=== PATIENT | male | born 1945 | race Caucasian/White ===

== ENCOUNTER 2020-01-10 14:39 | Emergency (ER) | payer OTHER, MEDICARE ==
[~2020-01-10] VITALS: Ht 167.6 cm; Wt 63.5 kg
[2020-01-10] MEDS ORDERED: Prednisone20 MG PO (16:10)
== END 2020-01-10 16:33 | disposition home or self-care (01) ==
LOC: ER 14:39
DX: H69.81 Other specified disorders of Eustachian tube, right ear (principal); I10 Essential (primary) hypertension; F17.210 Nicotine dependence, cigarettes, uncomplicated
CPT/HCPCS: 99282

== ENCOUNTER 2020-01-15 10:34 | Emergency (ER) | payer OTHER, MEDICARE ==
[~2020-01-15] VITALS: Ht 167.6 cm; Wt 63.5 kg
[~2020-01-15 10:34] MED LIST: Prednisone20 MG PO
[2020-01-15] MEDS ORDERED: Sudogest60 MG PO (11:29)
== END 2020-01-15 11:32 | disposition home or self-care (01) ==
LOC: ER 10:34
DX: H83.8X3 Other specified diseases of inner ear, bilateral (principal); I10 Essential (primary) hypertension; Z79.52 Long term (current) use of systemic steroids; F17.210 Nicotine dependence, cigarettes, uncomplicated
CPT/HCPCS: 99282

== ENCOUNTER 2022-04-30 15:47 | Inpatient (IN) | payer OTHER ==
[~2022-04-30] VITALS: Ht 167.6 cm; Wt 64.9 kg
[~2022-04-30 15:47] MED LIST changes: +Sudogest60 MG PO
[2022-04-30 17:09] LABS: BASOPHILS ABSOLUTE AUTO 0.04 K/mm3 (0.00-0.23); BASOPHILS PERCENT AUTO 1 % (0-2); EOSINOPHILS ABSOLUTE AUTO 0.11 K/mm3 (0.00-0.68); EOSINOPHILS PERCENT AUTO 1 % (0-6); Hematocrit 49.5 % (37.0-53.0); Hemoglobin 15.4 g/dL (13.5-17.5); IMMATURE GRAN ABSOLUTE AUTO 0.02 K/mm3 (0.00-0.10); IMMATURE GRAN PERCENT AUTO 0 % (0-1); LYMPHOCYTES ABSOLUTE AUTO 0.65 K/mm3 (0.84-5.20); LYMPHOCYTES PERCENT AUTO 8 % (21-46); MONOCYTES ABSOLUTE AUTO 1.07 K/mm3 (0.16-1.47); MONOCYTES PERCENT AUTO 14 % (4-13); Mean Corpuscular HGB 27.4 pg (26.0-34.0); Mean Corpuscular HGB Conc 31.1 g/dL (31.5-36.5); Mean Corpuscular Volume 88 fL (80-100); Mean Platelet Volume 10.5 fL (9.1-12.4); NEUTROPHILS ABSOLUTE AUTO 5.88 K/mm3 (1.96-9.15); NEUTROPHILS PERCENT AUTO 76 % (41-73); Platelet Count 144 K/mm3 (150-400); RDW Coefficient Variation 14.1 % (11.7-14.2); RDW Standard Deviation 45.7 fL (35.1-46.3); Red Blood Cell Count 5.62 M/mm3 (4.30-5.90); White Blood Cell Count 7.77 K/mm3 (4.00-11.30)
[2022-04-30 17:32] LABS: Albumin/Globulin Ratio 0.9 (0.8-1.8); Bilirubin, Total 0.5 mg/dL (0.1-1.0); Bun/Creatinine Ratio 35.1 (12.0-20.0); Calcium, Blood 8.5 mg/dL (8.5-10.1); Creatinine, Blood 0.74 mg/dL (0.60-1.20); Globulin, Blood 3.4 g/dL (2.2-4.0); Magnesium, Blood 1.8 mg/dL (1.6-2.4); Potassium, Blood 4.7 mmol/L (3.5-5.5); Total Protein, Blood 6.4 g/dL (6.4-8.2)
[2022-04-30] MEDS ORDERED: Flonase 0.05% N16 GM (19:26)
[2022-04-30] MEDS ORDERED: Aspir 8181 MG PO (19:26)
[2022-04-30] MEDS ORDERED: METO25 PO (19:26)
[2022-04-30 20:16] LABS: Influenza A, PCR NEGATIVE (NEGATIVE); Influenza B, PCR NEGATIVE (NEGATIVE); Resp Syncytial Virus, PCR NEGATIVE (NEGATIVE); SARS-Cov-2 (COVID-19) PCR, MMC NEGATIVE (NEGATIVE)
--- NOTE | 2022-04-30 21:58 | NUR ---
ADMISSION: PATIENT WAS RECIEVED FROM ER. VSS NO REPORTS OF PAIN OR SOB. 1L NC IS ON, RA AT HOME. PATIENT IS ORIENTED TO ROOM AND CALL SAMS. DR TRAVIS IS IN ROOM TO EVAL PATIENT.
[2022-04-30 22:52] LABS: CPK Creatine Kinase 52 U/L (39-308)
[2022-05-01 06:32] LABS: BASOPHILS ABSOLUTE AUTO 0.01 K/mm3 (0.00-0.23); BASOPHILS PERCENT AUTO 0 % (0-2); EOSINOPHILS PERCENT AUTO 0 % (0-6); Hematocrit 51.3 % (37.0-53.0); Hemoglobin 15.8 g/dL (13.5-17.5); IMMATURE GRAN ABSOLUTE AUTO 0.02 K/mm3 (0.00-0.10); IMMATURE GRAN PERCENT AUTO 0 % (0-1); LYMPHOCYTES ABSOLUTE AUTO 0.33 K/mm3 (0.84-5.20); LYMPHOCYTES PERCENT AUTO 6 % (21-46); MONOCYTES ABSOLUTE AUTO 0.42 K/mm3 (0.16-1.47); MONOCYTES PERCENT AUTO 7 % (4-13); Mean Corpuscular HGB 27.4 pg (26.0-34.0); Mean Corpuscular HGB Conc 30.8 g/dL (31.5-36.5); Mean Corpuscular Volume 89 fL (80-100); Mean Platelet Volume 10.2 fL (9.1-12.4); NEUTROPHILS ABSOLUTE AUTO 5.19 K/mm3 (1.96-9.15); NEUTROPHILS PERCENT AUTO 87 % (41-73); Platelet Count 134 K/mm3 (150-400); RDW Coefficient Variation 14.3 % (11.7-14.2); Red Blood Cell Count 5.76 M/mm3 (4.30-5.90); White Blood Cell Count 5.97 K/mm3 (4.00-11.30)
[2022-05-01 06:56] LABS: Albumin, Blood 3.2 g/dL (3.4-5.0); Albumin/Globulin Ratio 0.8 (0.8-1.8); Bilirubin, Total 0.5 mg/dL (0.1-1.0); Bun/Creatinine Ratio 27.9 (12.0-20.0); Calcium, Blood 8.4 mg/dL (8.5-10.1); Creatinine, Blood 0.75 mg/dL (0.60-1.20); Globulin, Blood 3.8 g/dL (2.2-4.0); Potassium, Blood 4.2 mmol/L (3.5-5.5)
--- NOTE | 2022-05-01 07:16 | NUR ---
SHIFT SUMMARY: PATIENT CONTINUES TO BE SOB WITH ACTIVITY. 2L NC KEEPS STATS 90-94%. PATIENT REPORTS PRODUCTIVE COUGH, BUT NONE OBSERVED BY PROPERTY MANAGEMENT COORDINATOR. IV LASIX WAS GIVEN. TELI IS IN PLACE SR WITH OCCASIONAL PVC'S. NO REPORTS OF CHEST PAIN.
--- NOTE | 2022-05-01 17:58 | NUR ---
DAYSHIFT SUMMARY Patient on tele, vitals stable, saturations stable on 1L oxygen, MD ordered home O2 evaluation on discharge. Patient alert and oriented, independent in room, steady gait when ambulating. SOB noted with excertion. IV ABX therapy administred. No other concerns at this time.
--- NOTE | 2022-05-02 06:40 | NUR ---
SHIFT SUMMARY: PATIENT REPORTS SOB HAS RESOLVED. 02 @ 2 L MAINTAINING SATS 91-93%. UP TO THE BATHROOM WITH STEADY GAIT INDEPENDANTLY. VSS.
[2022-05-02 08:07] LABS: Bun/Creatinine Ratio 29.7 (12.0-20.0); Calcium, Blood 8.7 mg/dL (8.5-10.1); Creatinine, Blood 0.67 mg/dL (0.60-1.20); Potassium, Blood 4.8 mmol/L (3.5-5.5)
--- NOTE | 2022-05-02 18:02 | NUR ---
SHIFT SUMMARY NO ACUTE CHANGES THIS SHIFT. PATIENT IS ALERT, ORIENTED AND ABLE TO MAKE HIS NEEDS KNOWN. PATIENT IS PLEASANT AND COOPERATIVE WITH CARE. ANTICIPATE PATIENT TO DC HOME TOMORROW, WILL NEED HOME O2 EVAL PRIOR TO DC HE IS ON 2L AT PRESENT. BED LOW AND LOCKED, CALL LIGHT WITHIN REACH. HE IS INDEPENDENT IN HIS ROOM. WILL CONT TO MONITOR UNTIL REPORT GIVEN TO QUARTER TRIMMER RN.
--- NOTE | 2022-05-03 05:46 | NUR ---
SHIFT SUMMARY: PATIENT SHOWERED THIS SHIFT, VSS, NO SOB OBSERVED. INDEPENDANT TO THE BATHROOM. PATIENT DOES NOT DRINK WATER ONLY COFFEE. WATER IS ENCOURAGED.
--- NOTE | 2022-05-03 17:10 | NUR ---
DAYSHIFT SUMMARY MD assessed patient at bedside this morning, plan is to have ECHO and Home O2 evaluation. ECHO completed & resulted in chart. Saturations stable on 2L oxygen, afebrile, vitals stable. Frequent nonproductive cough, SOB with activity, accessory muscle use observed. No other concerns at this time.
--- NOTE | 2022-05-04 05:07 | NUR ---
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 PT IS A FULL CODE. HE IS ALERT AND ORIENTED X4. CURRENTLY RESTING WELL ON 2L BY NC. LUNGS ARE WHEEZY IN ALL SCOTT, MOSTLY EXPIRATORY. PT DENIES SOB. PLAN FOR DISCHARGE HOME TODAY BASED ON RESULTS OF ECHO AND AFTER A HOME O2 EVAL. NO OTHER COMPLAINTS THIS SHIFT.
--- NOTE | 2022-05-04 15:49 | NUR ---
SHIFT SUMMARY PATIENT IS ALERT AND ORIENTED. PATIENT HAS BEEN ON 2L NC ALL SHIFT. PATIENT HAS BEEN IND IN ROOM. PATIENT HAS HAD NO COMPLAINTS OF NAUSEA, PAIN, SOB, OR VOMITTING THIS SHIFT. PATIENT TAKES MEDICATIONS PO WITH WATER. LUNGS ARE WHEEZY BUT DENIES SOB. PATIENT HAS HAD NO ACUTE EVENTS THIS SHIFT. VITAL SIGNS REVIEWED. BED IN LOCKED AND LOWEST POSITION. CALL LIGHT IN PLACE. WILL MONITOR UNTIL SHIFT CHANGE.
--- NOTE | 2022-05-05 00:52 | NUR ---
05/04/22 2201 PT LYING IN BED, DENIES ANY DISCOMFORT AT THIS TIME. DENIES SOB. ON 2L NC AT 96%. NO OTHER APPARENT SIGNS OF DISTRESS. CALL LIGHT IS IN REACH.
--- NOTE | 2022-05-05 01:27 | NUR ---
0000 PT LYING IN BED, EYES CLOSED, APPEARS TO BE RESTING. BREATHING IS EVEN, UNLABORED. NO APPARENT SIGNS OF DISTRESS. CALL LIGHT IS IN REACH.
--- NOTE | 2022-05-05 01:28 | NUR ---
PT LYING IN BED, EYES CLOSED, APPEARS TO BE RESTING. BREATHING IS EVEN, UNLABORED. NO APPARENT SIGNS OF DISTRESS. CALL LIGHT IS IN REACH.
--- NOTE | 2022-05-05 06:47 | NUR ---
0400 PT LYING IN BED, EYES CLOSED, APPEARS TO BE RESTING. WAKES EASILY TO VERBAL STIMULI. NO APPARENT SIGNS OF DISTRESS. CALL LIGHT IS IN REACH.
--- NOTE | 2022-05-05 06:48 | NUR ---
PT IS AAO X 4, ON 2L NC AT 96%. PT DENIES SOB OR ANY DISCOMFORT FOR THIS SHIFT.
--- NOTE | 2022-05-05 07:31 | NUR ---
PT LYING IN BED, AWAKE, NO APPARENT SIGNS OF DISTRESS. DENIES NEED FOR ANYTHING AT THIS TIME. CALLLIGHT IS IN REACH. NO OTHER CHANGES THIS SHIFT.
[2022-05-05] MEDS ORDERED: FLUTICASONE-SA1 EAC2 INH (13:22)
[2022-05-05] MEDS ORDERED: LEVO750 PO (13:23)
[2022-05-05] MEDS ORDERED: VISBIOME 112.51 EACH PO (13:24)
[2022-05-05] MEDS ORDERED: PRED10 PO (13:24)
[2022-05-05] MEDS ORDERED: ALBU2.5V5 INH (13:25)
--- NOTE | 2022-05-05 15:38 | NUR ---
DISCHARGE SUMMARY PATIENT IS ALERT AND ORIENTED. PATIENT HAS BEEN IND IN ROOM THIS SHIFT. PATIENT HAS HAD NO ACUTE EVENTS THIS SHIFT. VITAL SIGNS REVIEWED. PATIENT HAS BEEN ON 2L NC THIS SHIFT. PATIENT HAS NO COMPLAINTS OF PAIN, NAUSEA, SOB OR VOMITTING THIS SHIFT. [facility] W[facility] WITH PATIENT AND [facility] TO [facility]IENTS [facility] AT [facility] [place].
== END 2022-05-05 15:40 | disposition home or self-care (01) | DRG 189 ==
LOC: ER 15:47 → MEDS 15:48 → ER 15:48 → MEDS 21:34
PROVIDERS: Internal Medicine; Physician Assistant; ADMIT Internal Medicine
DX: J96.01 Acute respiratory failure with hypoxia (principal); I21.A1 Myocardial infarction type 2; J44.1 Chronic obstructive pulmonary disease with (acute) exacerbation; E87.1 Hypo-osmolality and hyponatremia; J44.0 Chronic obstructive pulmonary disease with (acute) lower respiratory infection; E44.0 Moderate protein-calorie malnutrition; R64 Cachexia; Z20.822 Contact with and (suspected) exposure to COVID-19; B96.89 Other specified bacterial agents as the cause of diseases classified elsewhere; J20.9 Acute bronchitis, unspecified; T38.0X5A Adverse effect of glucocorticoids and synthetic analogues, initial encounter; Z68.23 Body mass index [BMI] 23.0-23.9, adult; I27.20 Pulmonary hypertension, unspecified; D69.6 Thrombocytopenia, unspecified; R91.8 Other nonspecific abnormal finding of lung field; I35.0 Nonrheumatic aortic (valve) stenosis; L40.9 Psoriasis, unspecified; R73.9 Hyperglycemia, unspecified; F17.210 Nicotine dependence, cigarettes, uncomplicated; Z79.82 Long term (current) use of aspirin; Z79.52 Long term (current) use of systemic steroids; Z79.899 Other long term (current) drug therapy
CPT/HCPCS: 0241U; 36415; 71046; 71260; 80048; 80053; 82550; 83605; 83735; 83880; 84484; 85025; 85379; 87040; 87070; 87077; 87186; 87205; 93005; 93010; 93306; 94640; 94664; 94760; 94761; 96365; 96366; 96372; 96375; 96376; 99285-25; A9270; G0378; J0456; J0696; J1650; J1940; J2930; J7030; J7050; J7512; Q9967

== ENCOUNTER 2025-03-12 23:16 | Emergency (ER) | payer OTHER ==
[~2025-03-12] VITALS: Ht 167.6 cm; Wt 66.7 kg
[~2025-03-12 23:16] MED LIST changes: +ALBU2.5V5 INH; +Aspir 8181 MG PO; +FLUTICASONE-SA1 EAC2 INH; +Flonase 0.05% N16 GM; +LEVO750 PO; +METO25 PO; +PRED10 PO; +VISBIOME 112.51 EACH PO
[2025-03-12 23:42] LABS: BASOPHILS ABSOLUTE AUTO 0.05 K/mm3 (0.00-0.23); BASOPHILS PERCENT AUTO 0 % (0-2); EOSINOPHILS ABSOLUTE AUTO 0.26 K/mm3 (0.00-0.68); EOSINOPHILS PERCENT AUTO 2 % (0-6); Hematocrit 46.4 % (37.0-53.0); IMMATURE GRAN ABSOLUTE AUTO 0.07 K/mm3 (0.00-0.10); IMMATURE GRAN PERCENT AUTO 1 % (0-1); LYMPHOCYTES ABSOLUTE AUTO 1.34 K/mm3 (0.84-5.20); LYMPHOCYTES PERCENT AUTO 11 % (21-46); MONOCYTES ABSOLUTE AUTO 1.12 K/mm3 (0.16-1.47); MONOCYTES PERCENT AUTO 9 % (4-13); Mean Corpuscular HGB 29.4 pg (26.0-34.0); Mean Corpuscular HGB Conc 32.3 g/dL (31.5-36.5); Mean Corpuscular Volume 91 fL (80-100); NEUTROPHILS PERCENT AUTO 77 % (41-73); Platelet Count 143 K/mm3 (150-400); RDW Coefficient Variation 13.4 % (11.7-14.2); RDW Standard Deviation 45.4 fL (35.1-46.3); Red Blood Cell Count 5.11 M/mm3 (4.30-5.90); White Blood Cell Count 12.14 K/mm3 (4.00-11.30)
[2025-03-13 00:02] LABS: Albumin, Blood 3.5 g/dL (3.4-5.0); Bilirubin, Total 0.6 mg/dL (0.1-1.0); Bun/Creatinine Ratio 29.4 (12.0-20.0); Calcium, Blood 8.7 mg/dL (8.5-10.1); Creatinine, Blood 0.72 mg/dL (0.60-1.20); Globulin, Blood 3.5 g/dL (2.2-4.0); Potassium, Blood 4.1 mmol/L (3.5-5.5)
[2025-03-13 01:15] VITALS: BP 122/64
== END 2025-03-13 02:55 | disposition home or self-care (01) ==
LOC: ER 23:16
PROVIDERS: Emergency Medicine
DX: R00.0 Tachycardia, unspecified (principal); R73.9 Hyperglycemia, unspecified; R79.89 Other specified abnormal findings of blood chemistry; E86.0 Dehydration; D72.829 Elevated white blood cell count, unspecified; J44.9 Chronic obstructive pulmonary disease, unspecified; I10 Essential (primary) hypertension; Z79.82 Long term (current) use of aspirin; Z79.52 Long term (current) use of systemic steroids; Z79.899 Other long term (current) drug therapy
CPT/HCPCS: 71046; 80053; 83690; 84484; 85025; 93005; 93010; 99284-25

== ENCOUNTER 2025-05-20 08:18 | Day surgery (SDC) | payer OTHER ==
[2025-05-20] VITALS (8 sets, daily range): BP systolic 103–175; BP diastolic 51–137
[~2025-05-20] VITALS: Ht 167.6 cm; Wt 63.9 kg
[~2025-05-20 08:18] MED LIST changes: +ATOR20 PO; +Betamethasone V15 GM TOP; +EZET10 PO; +FLUT.05NI; +FURO40 PO; +HYDHCL25 PO; +JARDIANCE10 MG PO; +LUTEIN-ZEAXANT1 EAC3 PO; +SPIRIVA RESPIMAT4 G3 INH; +THERA-D2000 UNIT PO; +XARELTO20 MG PO
[2025-05-20] MEDS ORDERED: Heparin Sodium 1000 Units/ML 10ML MDV ONE (08:29)
[2025-05-20] MEDS ORDERED: NS 1,000 ML IV ONE ×2 (08:29→08:45)
[2025-05-20] MEDS ORDERED: NS 250 ML IV ONE (08:29)
[2025-05-20] MEDS ORDERED: Verapamil HCL 2.5 MG/ML 2ML Injection ONE (08:29)
[2025-05-20] MEDS ORDERED: Nitroglycerin 2 MG/20 ML BTL ONE (08:30)
[2025-05-20] MEDS ORDERED: Vitamin D1000 UNI1 PO (08:38)
[2025-05-20] MEDS ORDERED: ALBU90OI INH (08:45)
[2025-05-20] MEDS ORDERED: Midazolam HCl 1MG / ML 2ML Vial ONE (08:45)
[2025-05-20] MEDS ORDERED: FentaNYL Citrate 50 MCG/ML 2 ML Injection ONE (08:45)
[2025-05-20] MEDS ORDERED: PRESERVISION A1 EAC1 PO (08:47)
--- NOTE | 2025-05-20 12:08 | NUR ---
RETURNED EARLIER FROM [facility], PLACED TO 4L NC, TITRATED DOWN 02 TO ROOM AIR DURING RECOVERY; TR BAND ALSO DEFLATED AND REMOVED, DISCUSSED D/C INSTRUCTIONS, FOLLOW UP APPOINTMENT, RESUMING XARELTO, CALLING OR RETURNING IF BLEEDING FROM SITE AND CALLING IF UNABLE TO GET BLEEDING CONTROLLED, PATIENT VERBALIZE UNDERSTANDING, BELONGINGS GATHERED, PATIENT DRESSED, IV'S REMOVED X 2, TAKEN BY WHEELCHAIR TO LOBBY PENDING TRANSPORTATION AT 1200.
== END 2025-05-20 12:00 | disposition home or self-care (01) ==
LOC: MHTC 08:18
DX: I35.0 Nonrheumatic aortic (valve) stenosis (principal); I10 Essential (primary) hypertension; E78.5 Hyperlipidemia, unspecified; J44.9 Chronic obstructive pulmonary disease, unspecified; F17.200 Nicotine dependence, unspecified, uncomplicated; I65.22 Occlusion and stenosis of left carotid artery; I65.03 Occlusion and stenosis of bilateral vertebral arteries; R91.8 Other nonspecific abnormal finding of lung field; Z79.82 Long term (current) use of aspirin; Z79.899 Other long term (current) drug therapy
CPT/HCPCS: 76937; 93005; 93010; 93454; 99152; C1769; C1887; C1894; J1644; J2250; J3010; J7030; J7050; Q9967

== ENCOUNTER 2025-08-19 11:59 | Emergency (ER) | payer OTHER ==
[~2025-08-19] VITALS: Ht 167.6 cm; Wt 62.1 kg
[~2025-08-19 11:59] MED LIST changes: +ALBU90OI INH; +PRESERVISION A1 EAC1 PO; +Vitamin D1000 UNI1 PO
[2025-08-19] MEDS ORDERED: Diltiazem HCl 5 MG / ML 5ML Vial IV ONE (12:20)
[2025-08-19 12:41] LABS: BASOPHILS ABSOLUTE AUTO 0.05 K/mm3 (0.00-0.23); BASOPHILS PERCENT AUTO 0 % (0-2); EOSINOPHILS ABSOLUTE AUTO 0.30 K/mm3 (0.00-0.68); EOSINOPHILS PERCENT AUTO 2 % (0-6); Hematocrit 46.8 % (37.0-53.0); Hemoglobin 15.3 g/dL (13.5-17.5); IMMATURE GRAN ABSOLUTE AUTO 0.06 K/mm3 (0.00-0.10); IMMATURE GRAN PERCENT AUTO 1 % (0-1); LYMPHOCYTES ABSOLUTE AUTO 1.04 K/mm3 (0.84-5.20); LYMPHOCYTES PERCENT AUTO 8 % (21-46); MONOCYTES ABSOLUTE AUTO 1.14 K/mm3 (0.16-1.47); MONOCYTES PERCENT AUTO 9 % (4-13); Mean Corpuscular HGB Conc 32.7 g/dL (31.5-36.5); Mean Corpuscular Volume 89 fL (80-100); NEUTROPHILS ABSOLUTE AUTO 10.09 K/mm3 (1.96-9.15); NEUTROPHILS PERCENT AUTO 80 % (41-73); NRBC ABSOLUTE 0.00 K/mm3 (0.00-0.02); NRBC Auto 0.0 /100 WBC (0.0-0.2); Platelet Count 87 K/mm3 (150-400); RDW Coefficient Variation 14.3 % (11.7-14.2); RDW Standard Deviation 46.9 fL (35.1-46.3)
[2025-08-19 12:52] LABS: Alanine Aminotransfer (ALT/SGP 25.0 U/L (12-78); Albumin, Blood 3.3 g/dL (3.4-5.0); Albumin/Globulin Ratio 0.8 (0.8-1.8); Anion Gap 4.0 mmol/L (3-11); Aspartate Aminotrans (AST/SGOT 24.0 U/L (12-37); Bilirubin, Total 0.8 mg/dL (0.1-1.0); Blood Urea Nitrogen 30.0 mg/dL (8-24); CO2, Blood 31.0 mmol/L (21-32); Calcium, Blood 9.1 mg/dL (8.5-10.1); Chloride, Blood 106.0 mmol/L (98-108); Creatinine, Blood 0.8 mg/dL (0.60-1.20); Globulin, Blood 4.0 g/dL (2.2-4.0); Glucose, Blood 140.0 mg/dL (70-99); Potassium, Blood 4.1 mmol/L (3.5-5.5); Sodium, Blood 137.0 mmol/L (136-145); Total Protein, Blood 7.3 g/dL (6.4-8.2)
[2025-08-19 13:32] LABS: Magnesium, Blood 2.0 mg/dL (1.6-2.4); Thyroid Stimulating Hormone 0.904 uIU/mL (0.360-4.800)
[2025-08-19] MEDS ORDERED: CARTIA XT120 M1 PO (13:51)
[2025-08-19 14:15] VITALS: BP 115/65
== END 2025-08-19 15:09 | disposition home or self-care (01) ==
LOC: ER 11:59
PROVIDERS: Emergency Medicine; Physician Assistant
DX: I48.92 Unspecified atrial flutter (principal); I10 Essential (primary) hypertension; J44.9 Chronic obstructive pulmonary disease, unspecified; Z95.2 Presence of prosthetic heart valve; Z79.01 Long term (current) use of anticoagulants
CPT/HCPCS: 80053; 83735; 84439; 84443; 84484; 85025; 93005; 93010; 93242; 96374; 99284-25